=== PATIENT | male | born 1955 ===

== ENCOUNTER 2023-01-27 08:30 | Outpatient (RCR) | payer BC, MEDICARE, SELFPAY ==
[2022-10-01 09:16] VITALS: PULSE 95
== END 2023-01-27 16:29 | disposition home or self-care (01) ==
LOC: ANHCPREHAB 08:30
PROVIDERS: PCP Family Medicine; Visit Provider Internal Medicine Cardiovascular Disease
DX: Z95.5 Presence of coronary angioplasty implant and graft (principal)
CPT/HCPCS: 93798